=== PATIENT | female | born 1975 | race Caucasian/White ===

== ENCOUNTER 2017-09-24 08:21 | Emergency (ER) | payer MEDICAID ==
[2017-09-24 08:43] VITALS: BP 101/64
== END 2017-09-24 12:15 | disposition home or self-care (01) ==
LOC: ED 08:21
DX: H01.005 Unspecified blepharitis left lower eyelid (principal)

== ENCOUNTER 2017-12-09 11:10 | Inpatient (IN) | payer MEDICAID ==
[~2017-12-09] VITALS: Ht 165.1 cm; Wt 73.7 kg
[2017-12-09 12:31] LABS: UA SPECIFIC GRAVITY 1.025 (1.005-1.035); microscopic required? YES; urine erythrocyte 2+ (NEGATIVE)
[2017-12-09 12:34] LABS: BASOPHIL % 0.2 % (0-2); PLATELET COUNT 201 x10^3mcL (130-400); RED CELL DISTRIBUTION WIDTH 13.2 % (11.5-14.5)
[2017-12-09 12:47] LABS: CALCIUM 8.9 mg/dL (8.5-10.1); CARBON DIOXIDE 24.8 mmol/L (21-32); CHLORIDE SERUM 104 mmol/L (98-107); CREATININE SERUM 0.8 mg/dL (0.6-1.0); GFR1 > 60 mL/min; GLUCOSE SERUM 103 mg/dL (74-106); POTASSIUM SERUM 3.9 mmol/L (3.5-5.1); SODIUM SERUM 140 mmol/L (136-145)
[2017-12-09 13:00] LABS: ALBUMIN 3.7 g/dL (3.4-5.0); ALKALINE PHOSPHATASE 97 U/L (46-116); ALT/SGPT 21 U/L (14-59); AMYLASE 70 U/L (25-115); AST/SGOT 18 U/L (15-37); BILIRUBIN TOTAL 0.3 mg/dL (0.20-1.00); CHOLESTEROL 143 mg/dL (<200); HDL CHOLESTEROL 36 mg/dL (40-60); LIPASE 112 IU/L (73-393); T4(THYROXINE) 9.2 ug/dL (4.7-13.3); TOTAL PROTEIN, SERUM 7.5 g/dL (6.4-8.2)
[2017-12-09 17:26] LABS: T3 TOTAL 0.52 ng/mL
[2017-12-09 17:33] LABS: AMPHETAMINE QUAL UR NONE DETECTED (NEG <=1000)
[2017-12-09 18:06] LABS: FREE T4 1.05 ng/dL (0.76-1.46); FREE THYROXINE INDEX 2.5 ug/dL (1.4-4.5); T4(THYROXINE) 8.7 ug/dL (4.7-13.3)
[2017-12-09 18:19] LABS: MAGNESIUM 2.1 mg/dL (1.8-2.4); PHOSPHOROUS 2.9 mg/dL (2.5-4.9)
[2017-12-09 18:45] VITALS: BP 116/55
[2017-12-09 22:03] VITALS: BP 109/63
[2017-12-10 06:12] VITALS: BP 117/65
[2017-12-10 06:38] LABS: BASOPHIL % 0.4 % (0-2); PLATELET COUNT 177 x10^3mcL (130-400); RED CELL DISTRIBUTION WIDTH 13.2 % (11.5-14.5)
[2017-12-10 07:00] LABS: CARBON DIOXIDE 19.9 mmol/L (21-32); CHLORIDE SERUM 109 mmol/L (98-107); CREATININE SERUM 0.6 mg/dL (0.6-1.0); GFR1 > 60 mL/min; GLUCOSE SERUM 91 mg/dL (74-106); PHOSPHOROUS 3.1 mg/dL (2.5-4.9); POTASSIUM SERUM 3.5 mmol/L (3.5-5.1); SODIUM SERUM 139 mmol/L (136-145)
[2017-12-10 08:46] VITALS: Ht 165.1 cm; Wt 73.7 kg
[2017-12-10 09:56] VITALS: BP 106/68
[2017-12-10 10:21] LABS: RED BLOOD CELLS 4.01 M/mm3 (4.10-5.10)
[2017-12-10 10:44] LABS: IRON 46 ug/dL (50-170); TOTAL IRON BINDING CAPACITY 379 ug/dL (250-450)
[2017-12-10 13:02] VITALS: BP 97/53
[2017-12-10 17:16] VITALS: BP 104/64
[2017-12-10 20:14] VITALS: BP 100/60
[2017-12-11 04:40] VITALS: BP 93/55
[2017-12-11 06:13] LABS: BASOPHIL % 0.4 % (0-2); PLATELET COUNT 186 x10^3mcL (130-400); RED CELL DISTRIBUTION WIDTH 13.1 % (11.5-14.5)
[2017-12-11 07:08] LABS: CARBON DIOXIDE 20.8 mmol/L (21-32); CHLORIDE SERUM 113 mmol/L (98-107); CREATININE SERUM 0.7 mg/dL (0.6-1.0); GFR1 > 60 mL/min; GLUCOSE SERUM 97 mg/dL (74-106); MAGNESIUM 1.8 mg/dL (1.8-2.4); PHOSPHOROUS 2.7 mg/dL (2.5-4.9); POTASSIUM SERUM 3.9 mmol/L (3.5-5.1); SODIUM SERUM 146 mmol/L (136-145)
[2017-12-11 09:55] VITALS: BP 101/58
[2017-12-11 15:01] VITALS: BP 101/58
== END 2017-12-11 15:54 | disposition home or self-care (01) | DRG 385 ==
LOC: ED 11:10 → DU 15:50 → MU 12-10 07:55
PROVIDERS: Emergency Medicine; Family Medicine; Student in an Organized Health Care Education/Training Program
DX: D24.1 Benign neoplasm of right breast (principal); N17.0 Acute kidney failure with tubular necrosis; Z83.3 Family history of diabetes mellitus; R31.9 Hematuria, unspecified; N39.0 Urinary tract infection, site not specified; D64.9 Anemia, unspecified
CPT/HCPCS: 76641; 77066; 83880; 84439; 90658; J0696; J1885; J2550; J7030; Q0092; Q0162; Q9967

== ENCOUNTER 2019-04-30 16:17 | Emergency (ER) | payer MEDICAID ==
[~2019-04-30] VITALS: Ht 165.1 cm; Wt 75.3 kg
[2019-04-30 16:20] VITALS: Ht 165.1 cm; Wt 75.3 kg
[2019-04-30 20:03] VITALS: BP 116/51
== END 2019-04-30 20:03 | disposition home or self-care (01) ==
LOC: ED 16:17
DX: N60.01 Solitary cyst of right breast (principal)
CPT/HCPCS: 76641

== ENCOUNTER 2019-11-08 13:10 | Emergency (ER) | payer MEDICAID ==
[~2019-11-08] VITALS: Ht 165.1 cm; Wt 73.0 kg
[2019-11-08 13:17] VITALS: Ht 165.1 cm; Wt 73.0 kg
[2019-11-08 16:28] VITALS: BP 107/77
== END 2019-11-08 16:28 | disposition home or self-care (01) ==
LOC: ED 13:10
DX: N10 Acute pyelonephritis (principal)
CPT/HCPCS: J0696

== ENCOUNTER 2020-05-25 01:33 | Emergency (ER) | payer MEDICAID, SELFPAY ==
[~2020-05-25] VITALS: Ht 165.1 cm; Wt 77.1 kg
[2020-05-25 01:35] VITALS: Ht 165.1 cm; Wt 77.1 kg
[2020-05-25 03:24] VITALS: BP 115/59
== END 2020-05-25 03:24 | disposition home or self-care (01) ==
LOC: ED 01:33
DX: R05 Cough (principal); R06.02 Shortness of breath; R07.89 Other chest pain; R51 Headache
CPT/HCPCS: Q0092; U0003-CS